=== PATIENT | male | born 1965 | race Caucasian/White ===

== ENCOUNTER 2021-03-14 10:38 | Emergency (ER) | payer BC, SELFPAY ==
[2021-03-14 10:40] VITALS: BP 146/94; PULSE 73; RESP 14; TEMP 36.2; O2SAT 97; BMI 27.1
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
[2021-03-14] MEDS: Tetracaine 0.5% Ophthalmic Bottle OPHTHALMIC (12:00)
[2021-03-14] MEDS: Fluorescein 1 MG STRIP 1 STRIP OPHTHALMIC (12:00)
== END 2021-03-14 12:01 | disposition home or self-care (01) ==
PROVIDERS: Emergency Provider Emergency Medicine
DX: T15.01XA Foreign body in cornea, right eye, initial encounter (principal); W20.8XXA Other cause of strike by thrown, projected or falling object, initial encounter; Y93.89 Activity, other specified; Y92.9 Unspecified place or not applicable; Y99.9 Unspecified external cause status; F17.210 Nicotine dependence, cigarettes, uncomplicated
CPT/HCPCS: 65222; 10120; 99282

== ENCOUNTER 2021-08-20 10:06 | Outpatient (CLI) | payer BC, SELFPAY | END 2021-08-20 23:59 | disposition short-term general hospital (02) | LOC: LABSPEC 10:07 | PROVIDERS: Referring Provider Physician Assistant; Visit Provider Physician Assistant | DX: U07.1 COVID-19 (principal) | CPT/HCPCS: 87635; U0003; U0005 ==

== ENCOUNTER 2023-07-12 11:15 | Emergency (ER) | payer BC, SELFPAY ==
[2023-07-12 11:16] VITALS: BP 130/91; PULSE 99; RESP 20; TEMP 37.3; O2SAT 95; BMI 31.6
--- NOTE | 2023-07-12 12:07 | EDS_ITS ---
HPI History of Present Illness Chief Complaint: Abd Pain Informant: patient Narrative Narrative: Patient is a 57-year-old male with history of tobacco use and GERD (on Nexium) as well as recent diagnosis of strep throats currently on amoxicillin (diagnosed 4 days ago) presenting with cough and subsequent abdominal pain. Patient states he started with a scratchy throat but was exposed to strep after trip with his [facility] about 10 days ago. He has developed a cough and has had a runny nose. He states he gets bad coughing spells and is now having worsening abdominal pain. States his abdomen feels sore like he was punched in the gut. Denies any bulging. Denies a history of hernia. Denies any nausea or vomiting. States his bowel moods been okay. His pain in his abdomen is really only when he coughs. Denies any history of bronchitis, reactive airway, COPD or asthma. No fever reported over the past few days but notes that 2 days ago he did have a subjective fever. No other complaints at this time. Denies any swelling of his legs. Denies any history of abdominal surgeries [facility] Home Medications benzonatate 200 mg capsule 200 mg PO TID PRN cough #20 caps 07/12/23 [Rx Last Taken Unknown] prednisone 20 mg tablet 40 mg (2 x 20 mg) PO DAILY #8 tabs 07/12/23 [Rx Last Taken Unknown] Allergy/AdvReac Type Severity Reaction Status Date / Time No Known Allergies Allergy Verified 07/12/23 11:16 Social History Smoking Status: Current every day smoker tobacco type: cigarettes ROS ROS ED Constitutional Constitutional ED: Reports fever(s); Denies chills Eyes Eyes: Denies change in vision ENT ENT ED: Reports rhinorrhea and sore throat; Denies ear pain Cardiovascular Cardiovascular: Denies chest pain Respiratory/Chest Respiratory/Chest: Reports cough; Denies dyspnea or dyspnea on exertion Gastrointestinal Gastrointestinal: Reports abdominal pain; Denies diarrhea, nausea or vomiting Genitourinary Genitourinary ED: Denies dysuria Musculoskeletal Musculoskeletal: Denies arthralgias or myalgias Integumentary Denies rash Neurologic Neurologic: Denies headache(s) Psychiatric Psychiatric: Denies anxiety Hematologic/Lymphatic Hematologic/Lymphatic: Denies easy bleeding or easy bruising EXAM Physical Exam Const Vital Signs: 07/12/23 11:16 07/12/23 12:11 07/12/23 12:28 Temperature 99.2 F H Temperature Source Temporal Pulse Rate 99 Respiratory Rate 20 H 16 Respiratory Effort Normal Short of Breath Respiratory Depth Shallow Respiratory Pattern Normal Blood Pressure 130/91 H Blood Pressure Mean 104 Pulse Ox 95 Oxygen Delivery Method Room Air Room Air 07/12/23 12:30 Temperature Temperature Source Pulse Rate 98 Respiratory Rate 20 H Respiratory Effort Respiratory Depth Respiratory Pattern Blood Pressure 158/98 H Blood Pressure Mean 118 Pulse Ox 93 Oxygen Delivery Method Room Air Positive well nourished and well developed General Appearance ED: well developed and NAD HEENT Reports moist mucous membranes HEENT Narrative: Normal tympanic membranes bilaterally. Normal nasal mucosa. Mild erythema/injection of the posterior oropharynx with no exudate of the tonsils appreciated. Patient does have a bilobed uvula. It is midline. Eyes PERRL and EOMs intact bilaterally Neck supple and no JVD Chest Wall inspection of chest normal and palpation of chest normal Resp normal respiratory effort Auscultation: wheezes expiratory wheezes (Bilateral, diffuse) Cardio regular rate, regular rhythm and no murmurs GI normal to inspection, nondistended, normoactive bowel sounds, non-tender and non-distended GI Narrative: No mass or hernia appreciated. No reproducible tenderness on exam. No peritoneal signs. Back/Spine no CVA tenderness Extremity normal to inspection General Extremety ED: Negative for edema General Extremity: Negative for edema Neuro oriented x3 Sensorium / Orientation: alert Psych mental status grossly normal Skin no rashes or lesions noted and no wounds MDM MDM MDM Narrative Medical decision making narrative: Is evaluated for cough that is developing abdominal pain. Suspect the pain is more muscle skeletal associated with his frequent coughing. Vital signs normal. His low-grade temp of 99.2 which is nonspecific. Is currently on amoxicillin for strep throat which was diagnosed via swab at urgent care 4 days ago. On exam patient does have diffuse wheezing. Is given DuoNeb treatment and will reevaluate. Will obtain chest x-ray for concern of possible pneumonia. Discussed with patient that it seems that his abdominal pain is more referred secondary to his coughing and he is in agreement. He is comfortable with deferring any belly labs at this time. Given a dose of Motrin for pain. On repeat evaluation the has significant improvement of his breath sounds. He feels more comfortable. COVID, influenza swabs are negative. Chest x-ray shows increased markings that need outpatient follow-up. Patient be given information for this and referral for PCP for outpatient follow-up as well as pulmonology. Will be treated more for COPD exacerbation/reactive airway with his own and rescue inhaler. Is given a prescription for Tessalon Perles. He is agreeable this plan of care. Given return precautions. Discharged home in stable improved condition. Radiography Chest X-Ray - ED: 2 View, Read by ED Physician, Read by Radiologist and Chronic Changes Diagnostic Testing: Clinical Impression(s) from Imaging Studies Chest X-Ray 07/12/23 12:40 IMPRESSION: Increased markings in the anterior aspect of the right upper lobe abutting the fissure. Pleural thickening as described. Follow-up recommended. Electronically Signed: Brandon Pitts MD at 13:07 EST Reading Location ID and State: [facility] / [place] , Service support , Discharge Plan Triage Chief Complaint: Abd Pain ED Provider: Tona Henderson Dx/Rx/DC Orders Clinical Impression: Generalized abdominal wall pain, Cough, Abnormal CXR, Reactive airway disease with wheezing Instructions: ED Bronchitis with Wheezing (Adult), ED MDI Use Spacer or None Prescriptions: New prednisone 20 mg tablet 40 mg PO DAILY Qty: 8 0RF benzonatate 200 mg capsule 200 mg PO TID PRN (Reason: cough) Qty: 20 0RF Primary Care Provider: Care Physician,No Primary Referrals: Millie Topete MD [Med Staff - Power Line Installer And Repairer] - Shukri Gomez MD [Med Staff - Power Line Installer And Repairer] - Care Physician,No Primary [Primary Care Provider] - Activity Restrictions/Additional Instructions: Chest x-ray did show some abnormalities that need further evaluation by primary care doctor and possibly a CT. Is not consistent with pneumonia. [employer] referral for 2 different family practice doctors to follow-up with. Use inhaler you are given today, 1 to 2 puffs every 4-6 hours as needed for cough, wheezing or shortness of breath. Disposition Disposition: Home, Self Care Discharge Date/Time: 07/12/23 13:55
[2023-07-12] MEDS: Ipratropium/Albuterol Sulfate 3 ML AMPUL.NEB INHALATION (12:09)
[2023-07-12 12:11] VITALS: RESP 16
[2023-07-12] MEDS: Ibuprofen 600 MG Tablet PO (12:25)
[2023-07-12 12:28] VITALS: O2SAT 93
[2023-07-12 12:30] VITALS: BP 158/98; PULSE 98; RESP 20; O2SAT 93
--- NOTE | 2023-07-12 12:40 | RAD_ITS ---
STUDY: X-RAY CHEST REASON FOR EXAM: Male, 57 years old. Cough . Wheezing. TECHNIQUE: PA and lateral views of the chest. COMPARISON: None. FINDINGS: Hyperinflation. Increased markings in the anterior aspect of the right upper lobe abutting the fissure. Blunting of the right phrenic angle with thickening of the pleura in the right lateral hemithorax. Normal size heart. Normal mediastinum and lc. Normal visualized pulmonary arteries. Normal visualized aortic arch and descending thoracic aorta. There are diffuse degenerative changes of the visualized thoracic spine. Normal visualized ribs, clavicles, and shoulders. There is no demonstrated abnormality of the visualized soft tissue structures of the upper abdomen. RAD/Chest PA and Lateral IMPRESSION: Increased markings in the anterior aspect of the right upper lobe abutting the fissure. Pleural thickening as described. Follow-up recommended. Electronically Signed: Brandon Pitts MD at 13:07 EST ,
[2023-07-12] MEDS: predniSONE 20 MG Tablet 60 MG PO (13:47)
[2023-07-12] MEDS: Albuterol Sulfate 8 gm Inhaler (60 puffs) 2 PUFF INHALATION (13:47)
== END 2023-07-12 13:55 | disposition home or self-care (01) ==
PROVIDERS: Emergency Provider Emergency Medicine; Visit Provider Emergency Medicine
DX: R10.84 Generalized abdominal pain (principal); J45.909 Unspecified asthma, uncomplicated; K21.9 Gastro-esophageal reflux disease without esophagitis; F17.210 Nicotine dependence, cigarettes, uncomplicated
CPT/HCPCS: 71046; 87428; 94640; 99284

== ENCOUNTER → 2023-08-02 | Outpatient (CLI) | payer BC, SELFPAY ==
[2023-08-02 15:17] LABS: Absolute Lymphocyte Count 2.87 X10^3/uL (0.83-4.51); Absolute Neutrophil Count 5.1 X10^3/uL (2.0-7.7); Basophil# 0.05 X10^3/uL; Basophil% 0.6 % (0-1); Eosinophil# 0.13 X10^3/uL; Eosinophils% 1.5 % (0-5); Hematocrit 43.1 % (40-54); Hemoglobin 14.2 g/dL (13.0-16.5); Lymphocyte # 2.87 X10^3/ul (0.83-4.51); Lymphocyte % 32.3 % (19-41); Mean Corp Hgb Conc 32.9 g/dL (32-36); Mean Corpuscular Hgb 31.6 pg (27.0-32.0); Mean Platelet Vol. 9.7 fl (6.2-12.0); Monocyte# 0.71 X10^3/uL; NRBC Flagged by Analyzer 0 % (0-5); Neutrophil % 57.3 % (47-70); Platelet Count 357 K/mm3 (150-450); RBC Distribution Width CV 12.7 % (11.6-14.6); RBC Distribution Width SD 45.3 fl (35.1-43.9); Red Blood Count 4.49 M/mm3 (4.6-6.2); White Blood Count 8.9 K/mm3 (4.4-11.0)
[2023-08-02 16:16] LABS: AST(SGOT) 22 U/L (15-37); Alanine Aminotransfer ALT/SGPT 30 U/L (16-61); Albumin, Serum 3.8 g/dL (3.2-5.0); Alkaline Phosphatase 94 U/L (45-117); Anion Gap 8 (5-15); BUN 9 mg/dL (7-18); BUN/Creat Ratio 8.3 RATIO (10-20); Calcium,Total 8.7 mg/dL (8.5-10.1); Chloride 102 mmol/L (98-107); Cholesterol 260 mg/dL (200); Creatinine, Serum 1.09 mg/dL (0.70-1.30); EST Glomerular Filtration Rate 74 mL/min (>60); Est Glom Filt Rate - Afr Amer 89 mL/min (>60); Glucose 82 mg/dL (74-106); High Density Lipoprotein 87 mg/dL; Potassium 3.9 mmol/L (3.5-5.1); Protein, Total 7.8 g/dL (6.4-8.2); Sodium Level 137 mmol/L (136-145); Thyroid Stim Hormone (TSH) 3.57 uIU/mL (0.358-3.74); Triglycerides 85 mg/dL; Very Low Density Lipoprotein 17 mg/dL (5-40)
== END | disposition home or self-care (01) ==
LOC: MFPLAB 13:52
PROVIDERS: PCP Family Medicine; Visit Provider Family Medicine
DX: Z13.220 Encounter for screening for lipoid disorders (principal); Z13.1 Encounter for screening for diabetes mellitus; I10 Essential (primary) hypertension
CPT/HCPCS: 36415; 80053; 80061; 84443; 85025

== ENCOUNTER → 2024-11-29 | Outpatient (CLI) | payer BC, SELFPAY | END | disposition home or self-care (01) | LOC: CVS 10:13 | PROVIDERS: PCP Family Medicine; Referring Provider Family Medicine; Visit Provider Family Medicine | DX: R07.9 Chest pain, unspecified (principal) ==

== ENCOUNTER → 2025-01-25 | Outpatient (CLI) | payer BC, SELFPAY ==
--- OUTSIDE RECORDS SUMMARY | 2025-01-25 06:39 | XMS RPT_ITS | CCD ---
Author Organization [facility] Care Team Providers Care Silk Blocker Name Role Phone Unavailable Primary Care Provider UnavailCADE [place] Referring Unavailable Kathleen Zamora MD Primary Care Provider Kathleen Zamora MD Attending Provider [phone] Kathleen Zamora MD Referring Provider [phone] KATHLEEN ZAMORA Attending Unavailable KATHLEEN ZAMORA Consulting Unavailable KATHLEEN ZAMORA Primary Care Unavailable KATHLEEN ZAMORA Admitting Unavailable PROVIDER, UNKNOWN Consulting Unavailable Kathleen Zamora Referring Unavailable Kathleen Zamora Primary Care Unavailable Kathleen Zamora Attending Unavailable Kathleen Zamora Referring Unavailable Kathleen Zamora Primary Care Unavailable Kathleen Zamora Attending Unavailable Medications Current Medications Medication Drug Class(es) Dates Sig (Normalized) Sig (Original) [id number] 200 actuat albuterol 0.09 mg/actuat metered dose inhaler (1 source) beta2-Adrenergic Agonist Start: 09-22-2024 take 2 puff(s) by inhalation every four hours as needed for wheezing albuterol HFA (PROVENTIL HFA, VENTOLIN HFA) 90 mcg/actuation inhaler Inhale 2 Puffs as instructed every 4 hours as needed for wheezing/shortnes s of breath. 6.7 g 09/22/2024 Active amLODIPine 5 mg oral tablet (2 sources) Dihydropyridine Calcium Channel Reinier Start: 08-31-2024 take 1 tablet by mouth once amLODIPine (NORVASC) 5 mg tablet Take 1 tablet by mouth every afternoon. 08/31/2024 Active benzonatate 100 mg oral capsule (4 sources) Non-narcotic Antitussive Start: 09-22-2024 take 1 capsule by mouth every eight hours as needed benzonatate (TESSALON PERLE) 100 mg capsule Take 1 capsule by mouth three times a day as needed. 21 capsule 09/22/2024 Active Start: 07-12-2023 take 1 capsule by mo [facility] three times daily as needed for cough Benzonatate 200 mg capsule Active 200 mg PO THREE TIMES A DAY as needed for cough July 12, 2023 1:00am doxycycline monohydrate 100 mg oral tablet (1 source) Tetracycline-class Drug Start: 09-22-2024 End: 09-29-2024 take 1 tablet by mouth twice daily doxycycline monohydrate 100 mg tablet Take 1 tablet by mouth two times a day for 7 days. 14 tablet 09/22/2024 09/29/2024 Active predniSONE 20 mg oral tablet (3 sources) Start: 07-12-2023 take 2 tablets by mouth once daily Prednisone 20 mg tablet Active 40 mg PO DAILY July 12, 2023 1:00am Start: 07-12-2023 take 40 mg by mouth once daily Prednisone Active 40 MG PO DAILY July 12, 2023 12:00am Problems Problem Classification Problem Date Documented Da te Episodic/Chronic Abdominal pain (3 sources) Abdominal wall pain; Translations: [Generalized abdominal pain] 07-12-2023 Episodic Asthma (3 sources) Reactive airway disease; Translations: [Unspecified asthma, uncomplicated] 07-12-2023 Chronic Nonspecific chest pain (1 source) Chest pain, unspecified; Translations: [Chest pain, unspecified] Onset: 12-05-2024 Episodic Other injuries and conditions due to external causes (3 sources) Foreign body in right cornea; Translations: [Foreign body in cornea, right eye, initial encounter] 03-14-2021 Episodic Other lower respiratory disease (3 sources) Cough; Translations: [Cough] 07-12-2023 Episodic Other lower respiratory disease (2 sources) Cough; Translations: [Acute cough] 09-22-2024 Episodic Other lower respiratory disease (1 source) Shortness of breath; Translations: [Shortness of breath] Onset: 01-17-2025 Episodic Other screening for suspected conditions (not mental disorders or infectious disease) (3 sources) Imaging of thorax abnormal; Translations: [Abnormal findings on diagnostic imaging of other specified body structures] 07-12-2023 Chronic Other upper respiratory infections (1 source) Sore throat symptom; Translations: [Acute pharyngitis, unspecified] 09-22-2024 Episodic Unclassified (1 source) Acute cough; Translations: [Acute cough] Onset: 09-22-2024 Results Test Name Value Interpretation Reference Range Facility STRESS TEST (DGEST) NO MARJAN [place] 01-04-2025 STRESS TEST (DGEST) NO IMAGING [address] [address] Patient: ENMANUEL DILLON Phone#: : 1965 Age: 59 Gender: M Pt. Type: Out Account: [id number] Location: Ordering: KATHLEEN ZAMORA Exam Date: 01/04/2025/7:35 Family Phys: Charge Code: [id number] Physician: [place] Order #: [id number] Dose#: PROCEDURE: DGEST HISTORY: Patient is a 59-year-old male COMPARISON: None. INDICATIONS: CHEST PAIN TECHNIQUE: Electrocardiogram stress test was performed using the protocol listed below. STRESS RESULTS: Protocol: Santos Duration: 07:06minutes Reason for termination: Dyspnea, leg fatigue Resting Heart Rate: 72 bpm. Resting Blood Pressure: 151/87 mmHg Peak Heart Rate: 146 which is 90% of maximum predicted heart rate Peak Blood Pressure: 195/88 occurred 03:30 into recovery Workload: 8.70 METs. Symptoms with stress: Patient did not complain of any chest pain with stress. Stress test was ended due to shortness of breath and leg fatigue. EKG Data EKG at Baseline: EKG at baseline showed sinus rhythm at 70 BPM. Normal EKG. EKG with Stress: EKG with stress showed sinus tachycardia at 146 BPM. There is motion artifacts seen. There is less than [address] depression in leads V6 and leads III and AVF. ST changes improved in less than 50 seconds into recovery. This does not fulfill criteria for ischemia. CONCLUSION: 1. Patient did not complain of any chest pain with stress. Stress test was ended due to shortness of breath and leg fatigue. 2. Patient had appropriate heart rate and blood pressure response with stress. 3. Stress EKG is negative for inducible ischemia. [address] [address] Patient: ENMANUEL DILLON. Phone#: : 1965 Age: 59 Gender: M Pt. Type: Out Account: [id number] Location: Ordering: KATHLEEN ZAMORA Exam Date: 01/04/2025/7:35 Family Phys: Charge Code: [id number] Physician: [place] Order #: [id number] Dose#: Dictated by: ROSITA JAMESON MD on 01/04/2025 at 9:38 Approved by: ROSITA JAMESON MD on 01/04/2025 at 10:08 [place] [facility] Office Visit (UCWSTR ) ENMANUEL DILLON ([id number]) 1965 M Date Time Provider Department 09/22/24 10:30 AM CADE GONZALEZ [facility] During your visit today, we recorded the following information about you: Temperature Pulse Respiration Blood pressure 97.2 degrees 74/minute 18/minute 159/98 Weight 99.5 kg Cade Gonzalez PA 09/22/2024 11:02 AM Signed This note was created using [employer]. Subjective Enmanuel Dillon is a 59 year old male. HPI 59-year-old male presents for cough, sore throat, fatigue. Patient states he has had a cough for the past 5 days. He has also had a sore throat. Sore throat is slightly improving. Cough is dry. No chest pain or shortness of breath. No history of COPD or asthma. He is a smoker, 1 pack/day. He is not on any inhalers at home. Patient has had a little bit of runny nose for the past 5 days. He has been fatigued. No fevers. No sick contacts that he is aware of, but does travel a lot. No other complaint. No past medical history on file. No past surgical history on file. ALLERGIES Patient has no known allergies. MEDICATIONS amLODIPine (NORVASC) 5 mg tablet Take 1 tablet by mouth every afternoon. No family history on file. Social History Tobacco Use Smoking status: Every Day Types: Cigarettes Smokeless tobacco: Never Review of Systems Constitutional: Positive for fatigue. Negative for chills and fever. HENT: Positive for rhinorrhea and sore throat. Negative for congestion. Respiratory: Positive for cough. Negative for shortness of breath. Gastrointestinal: Negative for diarrhea and vomiting. Objective BP 159/98 Pulse 74 Temp 36.2 ?C (97.2 ?F) Resp 18 Wt 99.5 kg (219 lb 5.7 oz) SpO2 95% Physical Exam Vitals and nursing note reviewed. Constitutional: General: He is not in acute distress. Appearance: Normal appearance. He is not toxic-appearing. HENT: Right Ear: Tympanic membrane and ear canal normal. Left Ear: Tympanic membrane and ear canal normal. Nose: Nose normal. Mouth/Throat: Mouth: Mucous membranes are moist. Pharynx: Posterior oropharyngeal erythema present. Tonsils: 1+ on the right. 1+ on the left. Comments: Bifid uvula. Eyes: Conjunctiva/sclera: Conjunctivae normal. Cardiovascular: Rate and Rhythm: Normal rate and regular rhythm. Pulmonary: Effort: Pulmonary effort is normal. Breath sounds: Wheezing present. Skin: General: Skin is warm and dry. Neurological: Mental Status: He is alert. Assessment and Plan ASSESSMENT/PLAN: 1. Acute cough - ICD9: 786.2, ICD10: R05.1 (primary diagnosis) - XR CHEST 2V FRONTAL/LAT-small right-sided pleural effusion with adjacent atelectasis. -No history of CHF. No shortness of breath. No leg swelling. -Will cover for respiratory infection as patient has had cough for a week now. Rx doxycycline. -Suspect component of COPD as patient is wheezing and smoker. -Rx albuterol inhaler -Discussed with patient needs close follow-up with PCP due to pleural effusion seen on CXR. If any chest pain or shortness of breath, go to 2. Sore throat - ICD9: 462, ICD10: J02.9 - suspect viral - Group A strep molecular testing negative - Discussed supportive care treatment with fluids, rest and analgesia. - The patient may also use warm salt water gargles, throat lozenges and/or OTC throat spray as needed. - STREP A MOLECULAR (POC) Diagnosis and treatment plan were discussed and questions were answered to the patient's satisfaction. Pt acknowledged understanding of concepts and follow up plan. Specific signs and symptoms that would indicate the need for higher level of care were discussed in detail warranting prompt ER evaluation. DEB Griffin Krislyn P, PA 09/22/2024 10:59 AM Signed Please follow-up with PCP within 1 week for reevaluation and to ensure pleural effusion has resolved/improved. If you develop any chest pain or shortness of breath, go to ER. Allergies As of Date: 09/22/2024 (No Known Allergies) Date Reviewed: 09/22/2024 Reviewed by: Chey Tompkins MA - Fully Assessed Reason for Visit: Cough [28] Cmt: ST, fatigue x6 days Primary Visit Diagnosis:Acute cough [R05.1] Other Visit Diagnosis:Sore throat [J02.9] Order(s):XR CHEST 2V FRONTAL/LAT [0327767] Order #: [id number] FUTURE STREP A MOLECULAR (POC) [1781257] Order #: [id number]. #:[id number] albuterol HFA (PROVENTIL HFA, VENTOLIN HFA) 90 mcg/actuation inhalerInhale 2 Puffs as instructed every 4 hours as needed for wheezing/shortness of breath.Disp: 6.7 gRfl: 0 doxycycline monohydrate 100 mg tabletTake 1 tablet by mouth two times a day for 7 days.Disp: 14 tabletRfl: 0 benzonatate (TESSALON PERLE) 100 mg capsuleTake 1 capsule by mouth three times a day as needed.Disp: 21 capsuleRfl: 0 Prescriptions as of 09/22/2024 - amLODIPine (NORVASC) 5 mg table (more content not included)... Normal [facility] STREP A MOLECULAR (POC)on Procedural Control Valid [facility] Strep A (POCT) Negative Negative [facility] XR CHEST 2V FRONTAL/LATon XR CHEST 2V FRONTAL/LAT * * *Final Repor t* * * DATE OF EXAM: Sep 22 2024 10:40AM WOX 5291 - XR CHEST 2V FRONTAL/LAT / PROCEDURE REASON: Acute cough * * * * Physician Interpretation * * * * EXAMINATION: CHEST RADIOGRAPH (2 VIEW FRONTAL and LATERAL) PATIENT/TECHNOLOGIST PROVIDED HISTORY: cough for 6 days CLINICAL HISTORY: 59 years old Male with Acute cough MQ: XC2_6 EXAM DATE/TIME: 09/22/2024 10:40 AM COMPARISON: No relevant prior studies available. RESULT: Lines, tubes, and devices: None. Lungs and pleura: Small RIGHT pleural effusion with adjacent atelectasis. No confluent consolidation. No pneumothorax identified. Cardiomediastinal silhouette: Normal cardiomediastinal silhouette. Bones and soft tissues: Degenerative changes in the thoracic spine. IMPRESSION: Small RIGHT pleural effusion with adjacent atelectasis. Unemployment Claims Adjudicator: BRYSON Transcribe Date/Time: Sep 22 2024 10:41A Dictated by : RUMA TAYLOR DO This examination was interpreted and the report reviewed and electronically signed by: RUMA TAYLOR DO on Sep 22 2024 10:42AM EST [id number] Normal [facility] XR Chest PA and Lateralon IMPRESSION: Small RIGHT pleural effusion with adjacent atelectasis. Unemployment Claims Adjudicator: BRYSON Transcribe Date/Time: Sep 22 2024 10:41A Dictated by : RUMA TAYLOR DO This examination was interpreted and the report reviewed and electronically signed by: RUMA TAYLOR DO on Sep 22 2024 10:42AM EST DIVISION OF RADIOLOGY * * *Final Report* * * DATE OF EXAM: Sep 22 2024 10:40AM WOX 5291 - XR CHEST 2V FRONTAL/LAT / PROCEDURE REASON: Acute cough * * * * Physician Interpretation * * * * EXAMINATION: CHEST RADIOGRAPH (2 VIEW FRONTAL & LATERAL) PATIENT/TECHNOLOGIST PROVIDED HISTORY: cough for 6 days CLINICAL HISTORY: 59 years old Male with Acute cough MQ: XC2_6 EXAM DATE/TIME: 09/22/2024 10:40 AM COMPARISON: No relevant prior studies available. RESULT: Lines, tubes, and devices: None. Lungs and pleura: Small RIGHT pleural effusion with adjacent atelectasis. No confluent consolidation. No pneumothorax identified. Cardiomediastinal silhouette: Normal cardiomediastinal silhouette. Bones and soft tissues: Degenerative changes in the thoracic spine. DIVISION OF RADIOLOGY Provider, Phan Desouza [facility] - 09/22/2024 * * *Final Report* * * DATE OF EXAM: Sep 22 2024 10:40AM WOX 5291 - XR CHEST 2V FRONTAL/LAT / PROCEDURE REASON: Acute cough * * * * Physician Interpretation * * * * EXAMINATION: CHEST RADIOGRAPH (2 VIEW FRONTAL & LATERAL) PATIENT/TECHNOLOGIST PROVIDED HISTORY: cough for 6 days CLINICAL HISTORY: 59 years old Male with Acute cough MQ: XC2_6 EXAM DATE/TIME: 09/22/2024 10:40 AM COMPARISON: No relevant prior studies available. RESULT: Lines, tubes, and devices: None. Lungs and pleura: Small RIGHT pleural effusion with adjacent atelectasis. No confluent consolidation. No pneumothorax identified. Cardiomediastinal silhouette: Normal cardiomediastinal silhouette. Bones and soft tissues: Degenerative changes in the thoracic spine. IMPRESSION IMPRESSION: Small RIGHT pleural effusion with adjacent atelectasis. Unemployment Claims Adjudicator: PSCB Transcribe Date/Time: Sep 22 2024 10:41A Dictated by : RUMA TAYLOR DO This examination was interpreted and the report reviewed and electronically signed by: RUMA TAYLOR DO on Sep 22 2024 10:42AM EST [facility] Radiology Study observation (narrative) Jaxon dorman [facility] XR Chest PA and LateralOrder ed By: Ccf Provider on 09-22-2024 [facility] Absolute lymphocyte countOrd ered By: Kathleen Zamora on 08-02-2023 Lymphocytes Auto (Unsp spec) [#/Vol] 2.87 10*3/uL 0.83-4.51 [facility] Basophil percentageOrdered B y: Kathleen Zamora on 08-02-2023 Basophils/100 WBC (Bld) 0.6 % 0-1 [facility] Bilirubin [Mass/Vol] 0.70 mg/dL 0.20-1.00 [facility] Comment on above: For patients on eltr ombopag therapy, use of Dimension Conrad TBIL is not recommended. Chloride [Moles/Vol] 102 mmol/L 98-107 [facility] Cholesterol [Mass/Vol] 260 mg/dL <200 [facility] Comment on above: <200 mg/dL Desirable 200-240 mg/dL Borderline >240 mg/dL High Risk Eosinophils/100 WBC (Bld) 1.5 % 0-5 [facility] Glucose [Mass/Vol] 82 mg/dL 74-106 [facility] Neutrophils (Bld) [#/Vol] 5.1 10*3/uL 2.0-7.7 [facility] Neutrophils/100 WBC (Bld) 57.3 % 47-70 [facility] Potassium [Moles/Vol] 3.9 mmol/L 3.5-5.1 [facility] Protein [Mass/Vol] 7.8 g/dL 6.4-8.2 [facility] Sodium [Moles/Vol] 137 mmol/L 136-145 [facility] Triglyceride [Mass/Vol] 85 mg/dL <199 [facility] Comment on above: The drugs N-Acetylcy steine and Metamizole may falsely depress this assay.Serum Triglycerides Reference Interval Normal <150 mg/dL Borderline high 150 - 199 mg/dL High 200 - 499 mg/dL Very High > or = 500 mg/dL WBC (Bld) [#/Vol] 8.9 10*3/uL 4.4-11.0 [facility] Blood erythrocytes count (nu mber/volume)Ordered By: Kathleen Zamora on 08-02-2023 RBC (Bld) [#/Vol] 4.49 10*6/uL 4.6-6.2 [facility] Blood hemoglobin measurement (mass/volume)Ordered By: Kathleen Zamora on 08-02-2023 Hemoglobin (Bld) [Mass/Vol] 14.2 g/dL 13.0-16.5 [facility] Blood lymphocytes/100 leukoc ytesOrdered By: Kathleen Zamora on 08-02-2023 Lymphocytes/100 WBC (Bld) 32.3 % 19-41 [facility] Blood monocytes/100 leukocyt esOrdered By: Kathleen Zamora on 08-02-2023 Monocytes/100 WBC (Bld) 8.0 % 0-10 [facility] Blood platelet mean volumeOr dered By: Kathleen Zamora on 08-02-2023 Platelet mean volume (Bld) [Entitic vol] 9.7 fL 6.2-12.0 [facility] Determination of erythrocyte mean corpuscular volume (MCV)Ordered By: Kathleen Zamora on 08-02-2023 MCV (RBC) [Entitic vol] 96.0 fL 80-94 [facility] Hematocrit Auto (Bld) [Volum e fraction]Ordered By: Kathleen Zamora on 08-02-2023 Hematocrit (Bld) [Volume fraction] 43.1 % 40-54 [facility] Laboratory - Chemistry and C hemistry - challengeOrdered By: [facility] Kristi on 08-02-2023 ALP [Catalytic activity/Vol] 94 U/L 45-117 [facility] ALT [Catalytic activity/Vol] 30 U/L 16-61 [facility] CO2 [Moles/Vol] 27.0 mmol/L 21.0-32.0 [facility] Globulin (S) [Mass/Vol] 4.0 g/dL 2.2-4.2 [facility] Urea nitrogen/Creatinine [Mass ratio] 8.3 mg/mg 10-20 [facility] Laboratory - Hematology and Cell countsOrdered By: [facility] on 08-02-2023 Erythrocyte distribution width (RBC) [Entitic vol] 45.3 fL 35.1-43.9 [facility] Erythrocyte distribution width (RBC) [Ratio] 12.7 % 11.6-14.6 [facility] Immature granulocytes/100 WBC (Bld) 0.300 % 0.0-0.9 [facility] Comment on above: IG% - Immature Granu locytes (promyelocytes, myelocytes and metamyelocytes) > 1% indicates that a LEFT SHIFT is Present. MCH (RBC) [Entitic mass] 31.6 pg 27.0-32.0 [facility] Nucleated RBC/100 WBC (Bld) [Ratio] 0 % 0-5 [facility] MCHC Auto (RBC) [Mass/Vol]Or dered By: [facility] Zamora on 08-02-2023 MCHC (RBC) [Mass/Vol] 32.9 g/dL 32-36 [facility] No Panel InformationOrdered By: Kathleen Zamora on 08-02-2023 Estimated GFR (MDRD) Amer 89 mL/min >60 [facility] Comment on above: GFR Calc Estimated GFR (MDRD) Non-Af Amer 74 mL/min >60 [facility] Comment on above: Non- GFR Calc Thyroid Stimulating Hormone (TSH) 3.57 uIU/mL 0.358-3.74 [facility] Platelets bldOrdered By: Sabina Zamora on 08-02-2023 Platelets (Bld) [#/Vol] 357 10*3/uL 150-450 [facility] Serum or plasma albumin krzysztof urement (mass/volume)Ordered By: Kathleen Zamora on 08-02-2023 Albumin [Mass/Vol] 3.8 g/dL 3.2-5.0 [facility] Serum or plasma albumin/glob ulin mass ratioOrdered By: Kathleen Zamora on 08-02-2023 Albumin/Globulin [Mass ratio] 1.0 {ratio} 0.9-2.4 [facility] Serum or plasma calcium krzysztof urement (mass/volume)Ordered By: Kathleen Zamora on 08-02-2023 Calcium [Mass/Vol] 8.7 mg/dL 8.5-10.1 [facility] Serum or plasma cholesterol in HDL measurement (mass/volume)Ordered By: Kathleen Zamora on 08-02-2023 Cholesterol in HDL [Mass/Vol] 87 mg/dL >40 [facility] Comment on above: The drugs N-Acetylcy steine and Metamizole may falsely depress this assay. Reference Range HDL <40 mg/dL Low HDL Cholesterol HDL >or= 60 mg/dL High HDL Cholesterol Serum or plasma cholesterol in VLDL measurement (mass/volume)Ordered By: Kathleen Zamora on 08-02-2023 Cholesterol in VLDL [Mass/Vol] 17 mg/dL 5-40 [facility] Serum or plasma creatinine m easurement (mass/volume)Ordered By: Kathleen Zamora on 08-02-2023 Creatinine [Mass/Vol] 1.09 mg/dL 0.70-1.30 [facility] Comment on above: The validity of the calculated GFR & GFRAA in patients over 70 years has not been determined. Clinical correlation is essential. Serum or plasma low density lipoprotein (LDL) cholesterol measurement (mass/volume)Ordered By: Kathleen Zamora on 08-02-2023 Cholesterol in LDL [Mass/Vol] 156 mg/dL 0-130 [facility] Serum or plasma urea nitroge n measurement (mass/volume)Ordered By: Kathleen Zamora on 08-02-2023 Urea nitrogen [Mass/Vol] 9 mg/dL 7-18 [facility] Thin prep Papanicolaou smear with manual screeningOrdered By: Kathleen Zamora on 08-02-2023 Thin prep Papanicolaou smear with manual screening 22 U/L 15-37 [facility] Thin prep Papanicolaou smear with manual screening 8 5-15 [facility] Influenza virus A and B and SARS-CoV-2 (COVID-19) Ag panel - Upper respiratory specimOrdered By: Tona Henderson on 07-12-2023 SARS-CoV-2 (COVID-19) RNA HAVEN+probe Ql (Resp) [facility] Vital Signs Date Time Vital Sign Value Performing Clinician Deysii marco 09-22-2024 10:22-0500 Body temperature 97.2 [degF] Enviancen Aberegg PA Work Phone: [facility] 09-22-2024 10:22-0500 Body weight 99.5 kg Krislyn Aberegg PA Work Phone: [facility] 09-22-2024 10:22-0500 Diastolic blood pressure 98 mm[Hg] Krislyn Aberegg PA Work Phone: [facility] 09-22-2024 10:22-0500 Heart rate 74 /min Krislyn Aberegg PA Work Phone: [facility] 09-22-2024 10:22-0500 Respiratory rate 18 /min Krislyn Aberegg PA Work Phone: [facility] 09-22-2024 10:22-0500 SaO2% (BldA) [Mass fraction] 95 % Krislyn Aberegg PA Work Phone: [facility] 09-22-2024 10:22-0500 Systolic blood pressure 159 mm[Hg] Cade BOYD Work Phone: [facility] 07-12-2023 12:30-0500 Diastolic blood pressure 98 mm[Hg] [facility] 07-12-2023 12:30-0500 Heart rate 98 /min [facility] 07-12-2023 12:30-0500 Respiratory rate 20 /min [facility] 07-12-2023 12:30-0500 SaO2% (BldA) [Mass fraction] 93 % [facility] 07-12-2023 12:30-0500 Systolic blood pressure 158 mm[Hg] [facility] 07-12-2023 11:16-0500 Body height 177.8 cm [facility] 07-12-2023 11:16-0500 Body mass index (BMI) [Ratio] 31.6 kg/m2 [facility] 07-12-2023 11:16-0500 Body temperature 99.2 [degF] [facility] 07-12-2023 11:16-0500 Body weight 99.8 kg [facility] Encounters Encounter Date Encounter Type Care Provider Facility Start: 01-25-2025 ambulatory Kathleen Zamora Facility:[facility] Start: 01-04-2025 End: 01-04-2025 ambulatory KATHLEEN Reyes [facility] Start: 11-29-2024 End: 11-29-2024 ambulatory Kathleen Zamora MD Work Phone: [facility] Work Phone: Start: 11-29-2024 End: 11-29-[address] Kathleen Zamora MD -Cardiovascular Services Work Phone: Start: 11-29-2024 End: 11-29-2024 ambulatory Kathleen Zamora Facility:[facility] Start: 09-22-2024 End: 09-22-2024 ambulatory CADE GONZALEZ Facility:[facility] Start: 09-22-2024 End: 09-22-2024 Patient encounter procedure Cade BOYD Work Phone: [facility] Comment on above: Acute cough (Primary Dx); Sore throat Start: 09-22-2024 End: 09-22-2024 Subsequent hospital visit by physician Xr [facility] Work Phone: Radiology Comment on above: Acute cough [R05.1] Start: 08-02-2023 End: 08-02-2023 ambulatory [facility] Work Phone: Start: 08-02-2023 End: 08-02-2023 Patient encounter [facility] Start: 07-12-2023 End: 07-12-2023 Emergency department patient visit [facility]-Emergency Department Work Phone: Procedures Date Procedure Procedure Detail Performing Clinician Start: 09-22-2024 Radiologic exam ches t 2 views Cade BOYD Work Phone: Start: 09-22-2024 STREP A MOLECULAR (POC) Cade BOYD Work Phone: Start: 07-12-2023 SARS-CoV-2 & FLU Ant igen (Rapid) Start: 07-12-2023 Plain chest X-ray Plan of Treatment Date Care Activity Detail Author Start: 04-01-2024 Covid-19 Vaccine ( season) Covid-19 Vaccine ( season) [facility] Start: 04-01-2024 Influenza vaccination Influenza Vaccine (#1) [facility] Start: 07-12-2023 [facility] Start: 2020 Prostate specific antigen measurement Prostate Cancer Screening Discussion [facility] Start: 2015 Shingrix Vaccine (1 of 2) Shingrix Vaccine (1 of 2) [facility] Start: 2010 Diabetes Screening Diabetes Screening [facility] Start: 2010 Screening for malignant neoplasm of colon [facility] Start: 2000 Lipid panel Lipid Screening [facility] Start: 1984 Pneumococcal Vaccine: 50+ (1 of 2 - PCV) Pneumococcal Vaccine: 50+ (1 of 2 - PCV) [facility] Start: 1984 Urine microalbumin profile DTaP,Tdap,Td Vaccine (1 - Tdap) [facility] Start: 1983 Anxiety Screening Anxiety Screening [facility] Start: 1983 Depression Screening Depression Screening [facility] Start: 1983 Hepatitis C screening Hepatitis C Screening [facility] Start: 1983 HIV screening HIV Screening [facility] Patient Education ED Bronchitis with Wheezing (Adult) ED MDI Use Spacer or None [facility] Work Phone: Patient referral [facility] Work Phone: Payers Date Payer Category Payer Self-pay [id number] 2024 Unknown [id number] 2024 Unknown [id number] 1988 Unknown [facility] [id number] 1965 Unknown [id number] Unknown [id number] Unknown [id number] Social History Date Type Detail Facility [facility]: [facility]12[facility] Start: 1965 Sex Assigned At Male [facility] Start: 07-12-2023 End: 09-22-2024 Tobacco smoking status NHIS Smokes tobacco daily [facility] History of tobacco use Cigarette Smoker [facility] Start: 09-22-2024 Tobacco use and exposure Smokeless tobacco non-user [facility] Start: 09-22-2024 History of Social function [facility] Start: 09-22-2024 Tobacco use panel [facility] Start: 1965 Sex assigned at Not on file [facility] Start: 12-05-2024 Sex Male (finding) [facility] Instructions 09-22-2024 Patient Instructions Note Date & Type Note Facility 09-22-2024 Instructions Cade Gonzalez PA - 09/22/2024 10:59 AM EST Please follow-up with PCP within 1 week for reevaluation and to ensure pleural effusion has resolved/improved. If you develop any chest pain or shortness of breath, go to ER. documented in this encounter [facility] History of Present illness Narrative 09-22-2024 Nyasia James RT(R) - 09/22/2024 10:30 AM EST Note Date & Type Note Facility 09-22-2024 History of Presen t illness Narrative Radiology Service Progress Note PATIENT NAME: Enmanuel Dillon DATE OF SERVICE: September 22, 2024 TIME: 10:37 AM PATIENT IDENTITY VERIFICATION COMPLETED USING TWO (2) IDENTIFIERS: Name and Date of confirmed by patient verbally. FALL SCREENING: Has the patient had 2 falls in the last year or 1 fall with injury or currently using an Ambulatory Assistive Device (Walker, Cane, Wheelchair, Crutches, etc.)? No PATIENT GENDER DATA: Assigned male at PATIENT RELEVANT IMPLANT DATA REVIEWED: Not Applicable PATIENT PRESENTS WITH AN IMPLANTABLE OR ATTACHED GEOGRAPHY HEAD: No RADIOLOGY DEPARTMENT: General X-ray: Exam(s) Completed: Chest X-Ray PERIPHERAL IV DATA: Not applicable SIGNED BY: RT Micky(R) September 22, 2024 10:37 AM documented in this encounter [facility] Progress note 09-22-2024 Note Date & Type Note Facility 09-22-2024 Note HNO ID: [id number] Author: NYASIA JAMES RT(Emily) Service: Radiology Author Type: Technologist Type: Progress Notes Filed: 09/22/2024 10:41 Note Text: Radiology Service Progress Note PATIENT NAME: Enmanuel Dillon DATE OF SERVICE: September 22, 2024 TIME: 10:37 AM PATIENT IDENTITY VERIFICATION COMPLETED USING TWO (2) IDENTIFIERS: Name and Date of confirmed by patient verbally. FALL SCREENING: Has the patient had 2 falls in the last year or 1 fall with injury or currently using an Ambulatory Assistive Device (Walker, Cane, Wheelchair, Crutches, etc.)? No PATIENT GENDER DATA: Assigned male at PATIENT RELEVANT IMPLANT DATA REVIEWED: Not Applicable PATIENT PRESENTS WITH AN IMPLANTABLE OR ATTACHED GEOGRAPHY HEAD: No RADIOLOGY DEPARTMENT: General X-ray: Exam(s) Completed: Chest X-Ray PERIPHERAL IV DATA: Not applicable SIGNED BY: RT Micky(R) September 22, 2024 10:37 AM [facility] Progress note 09-22-2024 Note Date & Type Note Facility 09-22-2024 Note HNO ID: [id number] Author: CADE GONZALEZ PA Service: ? Author Type: Physician Fire Chief Type: Progress Notes Filed: 09/22/2024 11:02 Note Text: This note was created using [employer]. Subjective Enmanuel Dillon is a 59 year old male. HPI 59-year-old male presents for cough, sore throat, fatigue. Patient states he has had a cough for the past 5 days. He has also had a sore throat. Sore throat is slightly improving. Cough is dry. No chest pain or shortness of breath. No history of COPD or asthma. He is a smoker, 1 pack/day. He is not on any inhalers at home. Patient has had a little bit of runny nose for the past 5 days. He has been fatigued. No fevers. No sick contacts that he is aware of, but does travel a lot. No other complaint. No past medical history on file. No past surgical history on file. ALLERGIES Patient has no known allergies. MEDICATIONS amLODIPine (NORVASC) 5 mg tablet Take 1 tablet by mouth every afternoon. No family history on file. Social History Tobacco Use Smoking status: Every Day Types: Cigarettes Smokeless tobacco: Never Review of Systems Constitutional: Positive for fatigue. Negative for chills and fever. HENT: Positive for rhinorrhea and sore throat. Negative for congestion. Respiratory: Positive for cough. Negative for shortness of breath. Gastrointestinal: Negative for diarrhea and vomiting. Objective BP 159/98 Pulse 74 Temp 36.2 ?C (97.2 ?F) Resp 18 Wt 99.5 kg (219 lb 5.7 oz) SpO2 95% Physical Exam Vitals and nursing note reviewed. Constitutional: General: He is not in acute distress. Appearance: Normal appearance. He is not toxic-appearing. HENT: Right Ear: Tympanic membrane and ear canal normal. Left Ear: Tympanic membrane and ear canal normal. Nose: Nose normal. Mouth/Throat: Mouth: Mucous membranes are moist. Pharynx: Posterior oropharyngeal erythema present. Tonsils: 1+ on the right. 1+ on the left. Comments: Bifid uvula. Eyes: Conjunctiva/sclera: Conjunctivae normal. Cardiovascular: Rate and Rhythm: Normal rate and regular rhythm. Pulmonary: Effort: Pulmonary effort is normal. Breath sounds: Wheezing present. Skin: General: Skin is warm and dry. Neurological: Mental Status: He is alert. Assessment and Plan ASSESSMENT/PLAN: 1. Acute cough - ICD9: 786.2, ICD10: R05.1 (primary diagnosis) - XR CHEST 2V FRONTAL/LAT-small right-sided pleural effusion with adjacent atelectasis. -No history of CHF. No shortness of breath. No leg swelling. -Will cover for respiratory infection as patient has had cough for a week now. Rx doxycycline. -Suspect component of COPD as patient is wheezing and smoker. -Rx albuterol inhaler -Discussed with patient needs close follow-up with PCP due to pleural effusion seen on CXR. If any chest pain or shortness of breath, go to 2. Sore throat - ICD9: 462, ICD10: J02.9 - suspect viral - Group A strep molecular testing negative - Discussed supportive care treatment with fluids, rest and analgesia. - The patient may also use warm salt water gargles, throat lozenges and/or OTC throat spray as needed. - STREP A MOLECULAR (POC) Diagnosis and treatment plan were discussed and questions were answered to the patient's satisfaction. Pt acknowledged understanding of concepts and follow up plan. Specific signs and symptoms that would indicate the need for higher level of care were discussed in detail warranting prompt ER evaluation. DEB [facility] History of Present illness Narrative 09-22-2024 Cade Gonzalez PA - 09/22/2024 10:28 AM EST Note Date & Type Note Facility 09-22-2024 History of Presen t illness Narrative This note was created using [employer]. Subjective Enmanuel Dillon is a 59 year old male. HPI 59-year-old male presents for cough, sore throat, fatigue. Patient states he has had a cough for the past 5 days. He has also had a sore throat. Sore throat is slightly improving. Cough is dry. No chest pain or shortness of breath. No history of COPD or asthma. He is a smoker, 1 pack/day. He is not on any inhalers at home. Patient has had a little bit of runny nose for the past 5 days. He has been fatigued. No fevers. No sick contacts that he is aware of, but does travel a lot. No other complaint. No past medical history on file. No past surgical history on file. ALLERGIES Patient has no known allergies. MEDICATIONS amLODIPine (NORVASC) 5 mg tablet Take 1 tablet by mouth every afternoon. No family history on file. Social History Tobacco Use Smoking status: Every Day Types: Cigarettes Smokeless tobacco: Never Review of Systems Constitutional: Positive for fatigue. Negative for chills and fever. HENT: Positive for rhinorrhea and sore throat. Negative for congestion. Respiratory: Positive for cough. Negative for shortness of breath. Gastrointestinal: Negative for diarrhea and vomiting. Objective BP 159/98 Pulse 74 Temp 36.2 C (97.2 F) Resp 18 Wt 99.5 kg (219 lb 5.7 oz) SpO2 95% Physical Exam Vitals and nursing note reviewed. Constitutional: General: He is not in acute distress. Appearance: Normal appearance. He is not toxic-appearing. HENT: Right Ear: Tympanic membrane and ear canal normal. Left Ear: Tympanic membrane and ear canal normal. Nose: Nose normal. Mouth/Throat: Mouth: Mucous membranes are moist. Pharynx: Posterior oropharyngeal erythema present. Tonsils: 1+ on the right. 1+ on the left. Comments: Bifid uvula. Eyes: Conjunctiva/sclera: Conjunctivae normal. Cardiovascular: Rate and Rhythm: Normal rate and regular rhythm. Pulmonary: Effort: Pulmonary effort is normal. Breath sounds: Wheezing present. Skin: General: Skin is warm and dry. Neurological: Mental Status: He is alert. Assessment and Plan ASSESSMENT/PLAN: 1. Acute cough - ICD9: 786.2, ICD10: R05.1 (primary diagnosis) - XR CHEST 2V FRONTAL/LAT-small right-sided pleural effusion with adjacent atelectasis. -No history of CHF. No shortness of breath. No leg swelling. -Will cover for respiratory infection as patient has had cough for a week now. Rx doxycycline. -Suspect component of COPD as patient is wheezing and smoker. -Rx albuterol inhaler -Discussed with patient needs close follow-up with PCP due to pleural effusion seen on CXR. If any chest pain or shortness of breath, go to 2. Sore throat - ICD9: 462, ICD10: J02.9 - suspect viral - Group A strep molecular testing negative - Discussed supportive care treatment with fluids, rest and analgesia. - The patient may also use warm salt water gargles, throat lozenges and/or OTC throat spray as needed. - STREP A MOLECULAR (POC) Diagnosis and treatment plan were discussed and questions were answered to the patient's satisfaction. Pt acknowledged understanding of concepts and follow up plan. Specific signs and symptoms that would indicate the need for higher level of care were discussed in detail warranting prompt ER evaluation. DEB [facility] documented in this encounter [facility] Discharge instructions 07-12-2023 Note Date & Type Note Facility 07-12-2023 Hospital Discharg e instructions Additional Instructions Chest x-ray did show some abnormalities that need further evaluation by primary care doctor and possibly a CT. Is not consistent with pneumonia. [facility] referral for 2 different family practice doctors to follow-up with. Use inhaler you are given today, 1 to 2 puffs every 4-6 hours as needed for cough, wheezing or shortness of breath. [facility] Work Phone: Evaluation note Note Date & Type Note Facility Evaluation note No assessment information availa ble [facility] Work Phone: Evaluation note Note Date & Type Note Facility Evaluation note Diagnosis Acute cough- Primary Sore throat Acute pharyngitis Acute cough documented in this encounter [facility] Evaluation note Note Date & Type Note Facility Evaluation note Diagnosis Acute cough documented in this encounter [facility] Reason for referral (narrative) Note Date & Type Note Facility Reason for referral (narrative) No reason for referral information available [facility] Work Phone: Chief Complaint and Reason for Visit Chief Complaint ABD Chief Complaint Admit Date CHEST PAIN November 29, 2024 9:52am Advance Directives No Advanced Directives Records Found Advance Directive Response Recorded Date/ Time Living Will No July 12 023 12:30pm Power of Grain Drier No July 12, 2023 12:30pm Summary Purpose Family History No Family History Records FoundNo Family History Records FoundNo Family History Records Found Additional Source Comments Care Teams (unrecognized sec tion and content) Team Status: Active Member Role Status Dates No Primary Care Physician Primary Care Provider Active Team Status: Inactive Member Role Status Dates No Primary Care Physician Primary Care Provider Active Dr. Tona eHnderson DO Emergency Provider Active Team Status: Active Member Role Status Lynne Zamora MD Primary Care Provider Active Team Status: Inactive Member Role Status Dates No Primary Care Physician Primary Care Provider Active Dr. Tona Henderson DO Attending Provider, Emergency P rovider Active Team Status: Inactive Member Role Status Lynne Zamora MD Primary Care Provider, Attending Prov ider Active Team Status: Inactive Member Role Status Lynne Zamora MD Primary Care Provider Active St art: November 29, 2024 End: November 29, 2024 Kathleen Zamora MD Attending Provider Active Start : November 29, 2024 End: November 29, 2024 Kathleen Zamora MD Referring Provider Active Start : November 29, 2024 End: November 29, 2024 Goals (unrecognized section and content) Goals may be documented in a n alternate sectionGoals may be documented in an alternate sectionGoals may be documented in an alternate section Source Comments (unrecognize d section and content) In the event this informatio n is protected by the Federal Confidentiality of Alcohol and Drug Abuse Patient Records regulations: The Federal rules restrict any use of the information to criminally investigate or prosecute any alcohol or drug abuse patient.[facility] the event this information is protected by the Federal Confidentiality of Alcohol and Drug Abuse Patient Records regulations: The Federal rules restrict any use of the information to criminally investigate or prosecute any alcohol or drug abuse patient.[facility] Reason for Visit (unrecogniz ed section and content) Reason Comments Cough ST, fatigue x6 days Specialty Diagnoses / Procedures Referred By Contac t Referred To Contact [facility] Diagnoses sore throat Procedures sore throat Care, [facility] [address] [place] [address] Phone: tel: Referral ID Status Reason Start Date Expiration Date Visits Requested Visits Authorized [id number] New Request OON/Self Pay Override 09/22/2024 12/31/2025 1 1 (unrecognized sect ion and content) No Status Records FoundNo Status Records FoundNo Status Records Found INFORMATION SOURCE (unrecogn ized section and content) DATE CREATED AUTHOR 09/24/2024 [facility] DATE CREATED AUTHOR AUTHOR'S ORGANIZ ATION 01/05/2025 [facility] DATE CREATED AUTHOR AUTHOR'S ORGANIZ ATION 01/20/2025 [facility] FOR RECORDS PERTAINING TO PATIENTS WHO ARE OR HAVE BEEN ENROLLED IN A CHEMICAL DEPENDENCY/SUBSTANCEABUSE PROGRAM, SOME INFORMATION MAY BE OMITTED. This clinical summary was aggregated from multiple sources. Caution should be exercised in using it in the provision of clinical care. This summary normalizes information from multiple sources, and as a consequence, information in this document may materially change the coding, format and clinical context of patient data. In addition, data may be omitted in some cases. CLINICAL DECISIONS SHOULD BE BASED ON THE PRIMARY CLINICAL RECORDS. [facility]. provides no warranty or guarantee of the accuracy or completeness of information in this document.
--- NOTE | 2025-01-25 07:33 | CPS ---
ORIGINAL ORDER FOR BEFORE/AFTER BRONCHODILATOR TESTING WAS ELECTRONIC AND ENTERED 01/13/25. APPT WAS SCHEDULED SUCH. PT ARRIVED FOR APPT TODAY, THIS RT NOTICED WRITTEN ORDER FOR COMPLETE PFT SCANNED ON 01/14/25. ORIGINAL APPT TYPE WAS NOT CHANGED TO REFLECT NEW ORDER, INSTEAD A NEW APPT WAS CREATED BY [facility] THEN CX'D BY ANOTHER RT D/T ASSUMED DUPLICATE APPT. PT WAS GIVEN THE OPTION OF WHICH TESTING D/T ESTIMATE BEING RAN ON BEFORE/AFTER ONLY, PT CHOSE TO PROCEED WITH COMPLETE PFT. HE IS AWARE THERE IS A CHARGE DIFFERENCE AND AGREEABLE TO CONTINUING.
== END | disposition home or self-care (01) ==
PROVIDERS: PCP Family Medicine; Referring Provider Family Medicine; Visit Provider Family Medicine
DX: R06.02 Shortness of breath (principal)
CPT/HCPCS: 94060; 94726; 94729

== ENCOUNTER → 2025-03-04 | Outpatient (CLI) | payer BC, SELFPAY ==
[2025-03-04 12:48] LABS: Color, Urine Yellow (Yellow); Glucose, Dipstick Normal (Normal); Ketone-Dipstick Negative (Negative); Leukocyte Esterase-Dipstick 25 /ul (Negative); Nitrite-Dipstick Negative (Negative); Occult Blood-Urine 10 /ul (Negative); Protein-Dipstick Negative (Negative); Specific Gravity, Urine 1.010 (1.002-1.030); Urine Bilirubin Dipstick Negative (Negative)
[2025-03-04 14:11] LABS: HIV Nonreactive (Nonreactive)
== END | disposition home or self-care (01) ==
LOC: MFPLAB 10:35
PROVIDERS: PCP Family Medicine; Visit Provider Family Medicine
DX: A64 Unspecified sexually transmitted disease (principal)
CPT/HCPCS: 36415; 81002; 86703; 87491; 87591